=== PATIENT | female | born 1950 | race Caucasian/White ===

== ENCOUNTER 2023-12-07 15:27 | Emergency (ER) | payer MEDICARE, MEDICAID, SELFPAY ==
[2023-12-07] VITALS (22 sets, daily range): BP systolic 103–133; BP diastolic 51–77; PULSE 60–74; RESP 11–34; TEMP 36.8; O2SAT 92–99; BMI 28.2
--- NOTE | 2023-12-07 15:47 | DI.RAD.S_ITS ---
PROCEDURE: XR CHEST 1V INDICATIONS: chest pain TECHNIQUE: One view of the chest was acquired. COMPARISON: None. FINDINGS: Surgical changes and devices: Cardiac device is seen projecting near left hilum. Lungs and pleura: Lungs are clear. No pleural effusions or pneumothorax. Mediastinum: Mediastinal contours appear normal. Heart size is normal. Bones and chest wall: No suspicious bony lesions. Overlying soft tissues appear unremarkable. IMPRESSION: No acute cardiopulmonary pathology. Dictated by: Shane Umanzor M.D. on 12/07/2023 at 16:25 Approved by: Shane Umanzor M.D. on 12/07/2023 at 16:26
[2023-12-07 16:19] LABS: Add Manual Diff / Slide Review NO; Basophils Absolute Auto 100 /uL (0-100); Basophils Percent Auto 0.8 % (0-2); Eosinophils Absolute Auto 300 /uL (0-450); Eosinophils Percent Auto 2.7 % (2-4); Hematocrit 32.8 % (36-46); Hemoglobin 10.9 g/dL (12.0-16.0); Lymphocytes Absolute Auto 2200 /uL (1100-4500); Lymphocytes Percent Auto 22.8 % (25-40); Mean Corpuscular HGB Conc 33.2 % (30-36); Mean Corpuscular Hemoglobin 31.1 PG (26-34); Mean Corpuscular Volume 93.8 fL (80-100); Monocytes Absolute Auto 1000 /uL (0-900); Monocytes Percent Auto 10.3 % (3-14); Neutrophils Absolute Auto 6100 /uL (1500-7000); Neutrophils Percent Auto 63.4 % (50-75); Platelet Count 459 X10^3/uL (150-400); Red Cell Distribution Width 15.2 % (11.6-14.8); White Blood Cell Count 9.6 X10^3/uL (4.5-11.0)
[2023-12-07] MEDS: SODIUM CHLORIDE 0.9% 1,000 ML 150 ML IV (16:19)
[2023-12-07] MEDS: SODIUM CHLORIDE 0.9% 500 ML 1000 ML IV (16:19)
[2023-12-07 16:26] LABS: Lactate (Lactic Acid) 1.5 mmol/L (0.7-2.1)
[2023-12-07 16:28] LABS: Alanine Aminotransferase 10 IU/L (<35); Albumin 4.3 g/dL (3.5-5.0); Albumin Globulin Ratio 1.3 (1.0-2.8); Alkaline Phosphatase 63 U/L (38-126); Aspartate Aminotransferase 20 IU/L (14-36); BUN Creatinine Ratio 20.7 (6-22); Bilirubin Total 0.7 mg/dL (0.2-1.3); Blood Urea Nitrogen 30 mg/dL (7-17); Calcium 9.6 mg/dL (8.4-10.2); Carbon Dioxide 21 mmol/L (22-32); Chloride 106 mmol/L (98-107); Creatine Kinase 42 U/L (30-135); Estimated Glomerular Filt Rate 38 mL/min (>60); Globulin 3.3 g/dL (1.7-4.1); Glucose 92 mg/dL (80-110); HEMOLYSIS < 15 (0-50); Lipase 104 U/L (23-300); Potassium 5.3 mmol/L (3.4-5.1); Sodium 136 mmol/L (137-145); Total Protein 7.6 g/dL (6.3-8.2)
--- NOTE | 2023-12-07 16:34 | ED_ITS ---
HPI - SOB/Dyspnea <DO Demarco Hobbs Last Filed: 12/13/23 10:23> General Chief Complaint: Shortness of Breath/Dyspnea Stated Complaint: poss pnemonia/chest pain/SOB Time Seen by Provider: 12/07/23 16:34 Source: patient Mode of arrival: Ambulatory Limitations: no limitations History of Present Illness HPI Narrative: This is a 73-year-old female who had a robotic mitral valve replacement on 11/20/2023 at [facility]. Patient states that she has had some increasing shortness of breath and describes pleuritic chest pain and pain when she moves side to side. Patient states she has been pushing herself a little bit physically she was told not to lift her right arm or reach she has not been on that side but has some with her left and has been trying to push herself. She states still short of breath but not really worse than her surgery no orthopnea. They did notice she had sort of some swelling in her chest some around her sites that got better. She states no fevers. She has had a productive cough which has been yellow, no hemoptysis. No nausea or vomiting. She has had bowel movements but not quite normal. She does note some decreased appetite. She has been taking mostly gabapentin and Tylenol for pain, sometimes hydrocodone PRN. She is on aspirin 81 mg daily she is on lisinopril, levothyroxine and another medication or her tremors as well as heart. Patient states she has a prior shoulder surgery and appendectomy. Allergic to sulfa. No tobacco, for alcohol use, no recreational drugs. Patient surgeon is Dr. Aguilar at [place]. She lives in [place] but came over here to stay with her former [id number] who has been helping her as she recovers. She is scheduled for follow-up 4 weeks from her initial surgery. Related Data Allergies Allergy/AdvReac Type Severity Reaction Status Date / Time Sulfa (Sulfonamide Allergy Intermediate Verified 12/07/23 15:45 Antibiotics) Review of Systems <DO Demarco Hobbs Last Filed: 12/13/23 10:23> Review of Systems ROS Unobtainable: All systems reviewed & are unremarkable except as noted in HPI and below Patient History <DO Demarco Hobbs Last Filed: 05/09/24 10:23> Social History Smoking Status: Never smoker Smoking Status: Never smoker Substance Use Type: does not use Exam <Kaila Blood DO - Last Filed: 12/13/23 10:23> Narrative Exam Narrative: GENERAL: Alert and oriented x three, patient mild distress HEENT: Head normocephalic, atraumatic, EOMI, pupils reactive, face symmetric, moist mucous membranes NECK: Supple, full range of motion CARDIOVASCULAR: Regular rate and rhythm without murmurs, rubs or gallops. No JVD. Patient incisions are clean dry and intact she has 2 incisions on the left chest and upper abdomen as well as multiple incisions on the right. No erythema, no skin changes. Patient has nontender. RESPIRATORY: Breath sounds equal bilaterally, no wheezes rales or rhonchi. ABDOMEN: Soft, nontender. Normoactive bowel sounds all 4 quadrants. No guarding or rebound, rigidity, no mass : No CVA tenderness EXTREMITIES: Normal range of motion, no clubbing or edema. Neurovascularly intact NEUROLOGICAL: Cranial nerves II through XII grossly intact. Moving all extremities SKIN: Warm, dry, no petechiae, no rashes or lesions. Initial Vital Signs Initial Vital Signs: Vital Signs Temperature 98.3 F 12/07/23 15:34 Pulse Rate 66 12/07/23 15:34 Respiratory Rate 16 12/07/23 15:34 Blood Pressure 103/51 L 12/07/23 15:34 Pulse Oximetry 98 12/07/23 15:34 Oxygen Delivery Method Room Air 12/07/23 15:34 <Kaila Joe MD - Last Filed: 12/07/23 23:43> Initial Vital Signs Initial Vital Signs: Vital Signs Temperature 98.3 F 12/07/23 15:34 Pulse Rate 66 12/07/23 15:34 Respiratory Rate 16 12/07/23 15:34 Blood Pressure 103/51 L 12/07/23 15:34 Pulse Oximetry 98 12/07/23 15:34 Oxygen Delivery Method Room Air 12/07/23 15:34 Course <Kaila Blood DO - Last Filed: 12/13/23 10:23> Orders Ordered: Discontinued Medications Aspirin (Aspirin 81 Mg Chew Tab) 324 mg PO NOW ONE Stop: 12/07/23 15:47 Last Admin: 12/07/23 15:49 Dose: Not Given Documented By: ELIAS Sodium Chloride (Normal Saline 0.9%) 1,000 mls @ 150 mls/hr IV CONT MAYNOR Last Infusion: 12/07/23 20:50 Dose: Infused Documented By: Infusion: 12/07/23 16:20 Dose: 0 mls/hr Documented By: Admin: 12/07/23 16:19 Dose: 150 mls/hr Documented By: HIEU Sodium Chloride (Normal Saline 0.9%) 500 mls @ 1,000 mls/hr IV BOLUS ONE Stop: 12/07/23 16:23 Last Infusion: 12/07/23 19:22 Dose: Infused Documented By: Admin: 12/07/23 16:19 Dose: 1,000 mls/hr Documented By: SHANTEL Vital Signs Vital signs: Vital Signs - 8 hr 12/07/23 15:38 12/07/23 15:38 12/07/23 16:00 Pulse Rate 63 61 Respiratory Rate 20 Blood Pressure 103/51 L Pulse Oximetry 97 96 12/07/23 16:09 12/07/23 16:09 12/07/23 16:30 Pulse Rate 61 Respiratory Rate 18 Blood Pressure 114/57 L 104/57 L Pulse Oximetry 94 12/07/23 16:30 12/07/23 17:00 12/07/23 17:10 Pulse Rate 60 68 Respiratory Rate 21 19 Blood Pressure 133/61 Pulse Oximetry 96 98 12/07/23 17:10 12/07/23 17:15 12/07/23 17:15 Pulse Rate 62 62 Respiratory Rate 14 14 Blood Pressure 109/65 Pulse Oximetry 96 97 12/07/23 17:30 12/07/23 17:43 12/07/23 17:43 Pulse Rate 63 66 Respiratory Rate 26 H 19 Blood Pressure 121/63 Pulse Oximetry 96 92 12/07/23 17:45 12/07/23 17:45 12/07/23 18:00 Pulse Rate 66 66 Respiratory Rate 16 19 Blood Pressure 116/61 Pulse Oximetry 98 99 12/07/23 18:04 12/07/23 18:04 12/07/23 18:57 Pulse Rate 64 72 Respiratory Rate 18 21 Blood Pressure 119/60 Pulse Oximetry 97 95 12/07/23 18:57 12/07/23 19:00 12/07/23 19:00 Pulse Rate 70 Respiratory Rate 34 H Blood Pressure 120/74 118/65 Pulse Oximetry 97 12/07/23 19:15 12/07/23 19:15 12/07/23 19:30 Pulse Rate 64 64 Respiratory Rate 22 19 Blood Pressure 132/74 Pulse Oximetry 99 99 12/07/23 19:31 12/07/23 19:31 12/07/23 19:45 Pulse Rate 65 Respiratory Rate 25 H Blood Pressure 126/67 133/77 Pulse Oximetry 98 12/07/23 19:45 12/07/23 20:00 12/07/23 20:00 Pulse Rate 74 63 Respiratory Rate 11 L 23 Blood Pressure 126/76 Pulse Oximetry 99 99 12/07/23 20:15 12/07/23 20:15 Pulse Rate 62 Respiratory Rate 21 Blood Pressure 132/69 Pulse Oximetry 98 <Kaila Joe MD - Last Filed: 12/07/23 23:43> Orders Ordered: Discontinued Medications Aspirin (Aspirin 81 Mg Chew Tab) 324 mg PO NOW ONE Stop: 12/07/23 15:47 Last Admin: 12/07/23 15:49 Dose: Not Given Documented By: ELIAS Sodium Chloride (Normal Saline 0.9%) 1,000 mls @ 150 mls/hr IV CONT MAYNOR Last Infusion: 12/07/23 20:50 Dose: Infused Documented By: Infusion: 12/07/23 16:20 Dose: 0 mls/hr Documented By: Admin: 12/07/23 16:19 Dose: 150 mls/hr Documented By: HIEU Sodium Chloride (Normal Saline 0.9%) 500 mls @ 1,000 mls/hr IV BOLUS ONE Stop: 12/07/23 16:23 Last Infusion: 12/07/23 19:22 Dose: Infused Documented By: Admin: 12/07/23 16:19 Dose: 1,000 mls/hr Documented By: SHANTEL Vital Signs Vital signs: Vital Signs - 8 hr 12/07/23 15:38 12/07/23 15:38 12/07/23 16:00 Pulse Rate 63 61 Respiratory Rate 20 Blood Pressure 103/51 L Pulse Oximetry 97 96 12/07/23 16:09 12/07/23 16:09 12/07/23 16:30 Pulse Rate 61 Respiratory Rate 18 Blood Pressure 114/57 L 104/57 L Pulse Oximetry 94 12/07/23 16:30 12/07/23 17:00 12/07/23 17:10 Pulse Rate 60 68 Respiratory Rate 21 19 Blood Pressure 133/61 Pulse Oximetry 96 98 12/07/23 17:10 12/07/23 17:15 12/07/23 17:15 Pulse Rate 62 62 Respiratory Rate 14 14 Blood Pressure 109/65 Pulse Oximetry 96 97 12/07/23 17:30 12/07/23 17:43 12/07/23 17:43 Pulse Rate 63 66 Respiratory Rate 26 H 19 Blood Pressure 121/63 Pulse Oximetry 96 92 12/07/23 17:45 12/07/23 17:45 12/07/23 18:00 Pulse Rate 66 66 Respiratory Rate 16 19 Blood Pressure 116/61 Pulse Oximetry 98 99 12/07/23 18:04 12/07/23 18:04 12/07/23 18:57 Pulse Rate 64 72 Respiratory Rate 18 21 Blood Pressure 119/60 Pulse Oximetry 97 95 12/07/23 18:57 12/07/23 19:00 12/07/23 19:00 Pulse Rate 70 Respiratory Rate 34 H Blood Pressure 120/74 118/65 Pulse Oximetry 97 12/07/23 19:15 12/07/23 19:15 12/07/23 19:30 Pulse Rate 64 64 Respiratory Rate 22 19 Blood Pressure 132/74 Pulse Oximetry 99 99 12/07/23 19:31 12/07/23 19:31 12/07/23 19:45 Pulse Rate 65 Respiratory Rate 25 H Blood Pressure 126/67 133/77 Pulse Oximetry 98 12/07/23 19:45 12/07/23 20:00 12/07/23 20:00 Pulse Rate 74 63 Respiratory Rate 11 L 23 Blood Pressure 126/76 Pulse Oximetry 99 99 12/07/23 20:15 12/07/23 20:15 Pulse Rate 62 Respiratory Rate 21 Blood Pressure 132/69 Pulse Oximetry 98 MDM - SOB/Dyspnea <Kaila Blood DO - Last Filed: 12/13/23 10:23> Lab Data 12/07/23 16:01 12/07/23 16:01 Labs: Lab Results 12/07/23 12/07/23 12/07/23 Range/Units 16:01 16:38 16:55 WBC 9.6 (4.5-11.0) X10^3/uL RBC 3.50 L (4.0-5.2) X10^6/uL Hgb 10.9 L (12.0-16.0) g/dL Hct 32.8 L (36-46) % MCV 93.8 (80-100) fL MCH 31.1 (26-34) PG MCHC 33.2 (30-36) % RDW 15.2 H (11.6-14.8) % Plt Count 459 H (150-400) X10^3/uL Neut % (Auto) 63.4 (50-75) % Lymph % (Auto) 22.8 L (25-40) % [place] % (Auto) 10.3 (3-14) % Eos % (Auto) 2.7 (2-4) % Baso % (Auto) 0.8 (0-2) % Neut # (Auto) 6100 (0431-9176) /uL Lymph # (Auto) 2200 (5845-7818) /uL [place] # (Auto) 1000 H (0-900) /uL Eos # (Auto) 300 (0-450) /uL Baso # (Auto) 100 (0-100) /uL Sodium 136 L (137-145) mmol/L Potassium 5.3 H (3.4-5.1) mmol/L Chloride 106 (98-107) mmol/L Carbon Dioxide 21 L (22-32) mmol/L BUN 30 H (7-17) mg/dL Creatinine 1.45 H (0.52-1.04) mg/dL Estimated GFR 38 L (>60) mL/min BUN/Creatinine Ratio 20.7 (6-22) Glucose 92 (80-110) mg/dL Lactate 1.5 (0.7-2.1) mmol/L Calcium 9.6 (8.4-10.2) mg/dL Total Bilirubin 0.7 (0.2-1.3) mg/dL AST 20 (14-36) IU/L ALT 10 (<35) IU/L Alkaline Phosphatase 63 (38-126) U/L Total Creatine Kinase 42 (30-135) U/L Troponin I 0.103 H (0.01-0.034) ng/mL NT-Pro-B Natriuret Pep 4080 H (<125) pg/mL Total Protein 7.6 (6.3-8.2) g/dL Albumin 4.3 (3.5-5.0) g/dL Globulin 3.3 (1.7-4.1) g/dL Albumin/Globulin Ratio 1.3 (1.0-2.8) Lipase 104 (23-300) U/L Procalcitonin 0.05 (<0.5) ng/mL Urine RBC 0-1/hpf (0-5/HPF) Urine WBC 0-1/hpf (0-5/HPF) Ur Squamous Epith Cells 1-5 /hpf (0-5/HPF) Urine Bacteria Occasional (0-1) (None) Hyaline Casts 0-1/lpf (None) Urine Mucus 1+ H (Negative) Ur Culture Indicated? Specimen cultured Vol Urine Centrifuged 10ml (spun) Chlamy pneumoniae PCR Not detected (Not Detect) Adenovirus (PCR) Not detected (Not Detect) B.parapertussis DNA PCR Not detected (Not Detecte) Coronavirus OC43 (PCR) Not detected (Not Detect) Coronavirus HKU1 (PCR) Not detected (Not Detect) Coronavirus 229E (PCR) Not detected (Not Detect) SARS-CoV-2 (PCR) Not detected (Not Detecte) Coronavirus NL63 (PCR) Not detected (Not Detect) Human Metapneumovir PCR Not detected (Not Detect) Influenza Type A (PCR) Not detected (Not Detect) Influenza Type B (PCR) Not detected (Not Detect) M. pneumoniae (PCR) Not detected (Not Detect) Parainfluenza 1 (PCR) Not detected (Not Detect) Parainfluenza 2 (PCR) Not detected (Not Detect) Parainfluenza 3 (PCR) Not detected (Not Detect) Parainfluenza 4 (PCR) Not detected (Not Detect) RSV (PCR) Not detected (Not Detect) Entero/Rhino (PCR) Not detected (Not Detect) 12/07/23 Range/Units 18:00 WBC (4.5-11.0) X10^3/uL RBC (4.0-5.2) X10^6/uL Hgb (12.0-16.0) g/dL Hct (36-46) % MCV (80-100) fL MCH (26-34) PG MCHC (30-36) % RDW (11.6-14.8) % Plt Count (150-400) X10^3/uL Neut % (Auto) (50-75) % Lymph % (Auto) (25-40) % [place] % (Auto) (3-14) % Eos % (Auto) (2-4) % Baso % (Auto) (0-2) % Neut # (Auto) (0906-0962) /uL Lymph # (Auto) (9093-9180) /uL [place] # (Auto) (0-900) /uL Eos # (Auto) (0-450) /uL Baso # (Auto) (0-100) /uL Sodium (137-145) mmol/L Potassium (3.4-5.1) mmol/L Chloride (98-107) mmol/L Carbon Dioxide (22-32) mmol/L BUN (7-17) mg/dL Creatinine (0.52-1.04) mg/dL Estimated GFR (>60) mL/min BUN/Creatinine Ratio (6-22) Glucose (80-110) mg/dL Lactate (0.7-2.1) mmol/L Calcium (8.4-10.2) mg/dL Total Bilirubin (0.2-1.3) mg/dL AST (14-36) IU/L ALT (<35) IU/L Alkaline Phosphatase (38-126) U/L Total Creatine Kinase (30-135) U/L Troponin I 0.029 (0.01-0.034) ng/mL NT-Pro-B Natriuret Pep (<125) pg/mL Total Protein (6.3-8.2) g/dL Albumin (3.5-5.0) g/dL Globulin (1.7-4.1) g/dL Albumin/Globulin Ratio (1.0-2.8) Lipase (23-300) U/L Procalcitonin (<0.5) ng/mL Urine RBC (0-5/HPF) Urine WBC (0-5/HPF) Ur Squamous Epith Cells (0-5/HPF) Urine Bacteria (None) Hyaline Casts (None) Urine Mucus (Negative) Ur Culture Indicated? Vol Urine Centrifuged Chlamy pneumoniae PCR (Not Detect) Adenovirus (PCR) (Not Detect) B.parapertussis DNA PCR (Not Detecte) Coronavirus OC43 (PCR) (Not Detect) Coronavirus HKU1 (PCR) (Not Detect) Coronavirus 229E (PCR) (Not Detect) SARS-CoV-2 (PCR) (Not Detecte) Coronavirus NL63 (PCR) (Not Detect) Human Metapneumovir PCR (Not Detect) Influenza Type A (PCR) (Not Detect) Influenza Type B (PCR) (Not Detect) M. pneumoniae (PCR) (Not Detect) Parainfluenza 1 (PCR) (Not Detect) Parainfluenza 2 (PCR) (Not Detect) Parainfluenza 3 (PCR) (Not Detect) Parainfluenza 4 (PCR) (Not Detect) RSV (PCR) (Not Detect) Entero/Rhino (PCR) (Not Detect) Urine Dip Bedside Urine Glucose Negative Bedside Urine Bilirubin - Negative Bedside Urine Ketone - Negative Urine Specific [place] 1.015 Bedside Urine Occult Blood - Negative Bedside Urine pH 6.0 Bedside Urine Protein - Negative Bedside Urine Urobilinogen - Negative Bedside Urine Nitrite + Positive Bedside Urine Leukocytes - Negative Esterase Imaging Data Chest x-ray: Radiologist's Impression: Close Chest X-Ray (Signed) Shane Umanzor - 12/07/23 [place] [address] XRay Report Signed Patient: Monie Ann MR#: [id number] : 1950 Acct:[id number] Age/Sex: 73 / F Date of Service: 12/07/23 Loc: ED Accession Number: [id number] Procedure: XR chest 1V Ordering Provider: Kaila Blood D.O. PROCEDURE: XR CHEST 1V INDICATIONS: chest pain TECHNIQUE: One view of the chest was acquired. COMPARISON: None. FINDINGS: Surgical changes and devices: Cardiac device is seen projecting near left hilum. Lungs and pleura: Lungs are clear. No pleural effusions or pneumothorax. Mediastinum: Mediastinal contours appear normal. Heart size is normal. Bones and chest wall: No suspicious bony lesions. Overlying soft tissues appear unremarkable. IMPRESSION: No acute cardiopulmonary pathology. Dictated by: Shane Umanzor M.D. on 12/07/2023 at 16:25 Approved by: Shane Umanzor M.D. on 12/07/2023 at 16:26 CT chest: Radiologist's Impression: Close Chest CTA (Signed) Micheal Morales - 12/07/23 Chest X-Ray (Signed) Shane Umanzor - 12/07/23 [facility] [address] [address] [address] Scan Report Signed Patient: Monie Ann MR#: [id number] : 1950 Acct:[id number] Age/Sex: 73 / F Date of Service: 12/07/23 Loc: ED Accession Number: [id number] Procedure: CT angio chest PE protocol Ordering Provider: Kaila Blood D.O. PROCEDURE: CT ANGIO CHEST PE PROTOCOL INDICATIONS: chest pain, sob s/p robotic mitral valve 11/19 in [place] TECHNIQUE: After the administration of intravenous contrast, 2 mm thick sections acquired from the pulmonary apices to the posterior costophrenic angles. 3-dimensional maximum intensity projection (MIP) coronal and sagittal reformats were then acquired through the thorax. For radiation dose reduction, the following was used: automated exposure control, adjustment of mA and/or kV according to patient size. COMPARISON: [facility], CR, XR CHEST 1V, 12/07/2023, 15:58. FINDINGS: Image quality: Diagnostic. Pulmonary arteries: Pulmonary arteries are normal in size, and demonstrate no intraluminal filling defects to suggest central pulmonary embolism. Lower Neck: No enlarged lymph nodes. Thyroid: No thyroid nodules which require sonographic follow up, per consensus guidelines. Axillae: No enlarged lymph nodes. Chest Wall: Unremarkable. Bones: Moderate T12 compression fractures of uncertain age. Lungs and Pleura: No pneumothorax or pleural effusions. Small bilateral pleural effusions. No pneumothorax. Ground-glass attenuation in both lungs is likely related to non breath hold technique although mild edema is not excluded. No consolidation or suspicious nodules. Heart: Heart size is mildly enlarged. Small pericardial effusion. A prosthetic mitral valve is present. Left atrial appendage clip is also seen. Thoracic Vessels: No aortic aneurysm. Mediastinum and Vicky: Increased number of mediastinal lymph nodes are seen measuring up to 1.0 cm in short axis diameter in the precarinal region.. Esophagus: No wall thickening. No hiatal hernia. Upper Abdomen: Visualized upper abdomen solid organs and bowel loops appear normal. IMPRESSION: 1. No acute pulmonary embolus. 2. Mild cardiomegaly. Prosthetic mitral valve and left atrial appendage clip are present. 3. Small non-specific pericardial effusion. 4. Small bilateral pleural effusions. 5. Mild ground-glass attenuation in both lungs is likely related to atelectasis although mild edema is not excluded. 6. Moderate T12 compression fracture is of uncertain age. Recommend correlation with any prior exams if available. Approved by: Micheal Morales M.D. on 12/07/2023 at 18:26 ECG Data Attestation: I personally reviewed and interpreted this ECG as follows: Prior ECG tracings: not available for review Interpretation: Sinus rhythm rate of 62 AK 150 QRS 82 QTC 432. Elevation patient does have inverted T-waves V2 through V5, as well as 1 in aVL. Patient does not have any priors for comparison. MDM Narrative Medical decision making narrative: Patient's white count is 9.6 hemoglobin is 10.9 platelets 459, lymphocytes are low no predominance of neutrophils. Sodium is 136 potassium is 5 3 chloride 106 with a CO2 of 21 BUN of 30 creatinine of 1.45, glucose 92 lactate 1.5, procalcitonin is less than appear 0.05, trope is indeterminate 0.103 and BNP of 4000. Patient's troponin could be still elevated postsurgically, has repeat troponin pending. Respiratory panel is negative. Chest x-ray shows no acute change. CT chest shows no PE, mild cardiomegaly mitral valve and left atrial appendage clip present nonspecific small pericardial effusion, mild bilateral pleural effusions mild ground-glass attenuation moderate T12 compression fracture uncertain age. Signed out to Dr. Joe while awaiting repeat troponin. Dr. Joe - 0 2Hr troponin decreased. Patient reassessed, denying complaints or symptoms. Plan to reach out to patient's CT surgery team in [place] No word from [place] as of 2029. Patient requesting to leave, stating she feels better and with normal workup would like to go to her sister's house. I will reach out to patient if CT surgery has any additional recommendation. 2114 - Discussed case with Dr. Ruffin of CT surgery in [place]. No further recommendations. Patient can follow up in the office <Kaila Joe MD - Last Filed: 12/07/23 23:43> Lab Data Labs: Lab Results 12/07/23 12/07/23 12/07/23 Range/Units 16:01 16:38 16:55 WBC 9.6 (4.5-11.0) X10^3/uL RBC 3.50 L (4.0-5.2) X10^6/uL Hgb 10.9 L (12.0-16.0) g/dL Hct 32.8 L (36-46) % MCV 93.8 (80-100) fL MCH 31.1 (26-34) PG MCHC 33.2 (30-36) % RDW 15.2 H (11.6-14.8) % Plt Count 459 H (150-400) X10^3/uL Neut % (Auto) 63.4 (50-75) % Lymph % (Auto) 22.8 L (25-40) % [place] % (Auto) 10.3 (3-14) % Eos % (Auto) 2.7 (2-4) % Baso % (Auto) 0.8 (0-2) % Neut # (Auto) 6100 (0228-3109) /uL Lymph # (Auto) 2200 (0025-2522) /uL [place] # (Auto) 1000 H (0-900) /uL Eos # (Auto) 300 (0-450) /uL Baso # (Auto) 100 (0-100) /uL Sodium 136 L (137-145) mmol/L Potassium 5.3 H (3.4-5.1) mmol/L Chloride 106 (98-107) mmol/L Carbon Dioxide 21 L (22-32) mmol/L BUN 30 H (7-17) mg/dL Creatinine 1.45 H (0.52-1.04) mg/dL Estimated GFR 38 L (>60) mL/min BUN/Creatinine Ratio 20.7 (6-22) Glucose 92 (80-110) mg/dL Lactate 1.5 (0.7-2.1) mmol/L Calcium 9.6 (8.4-10.2) mg/dL Total Bilirubin 0.7 (0.2-1.3) mg/dL AST 20 (14-36) IU/L ALT 10 (<35) IU/L Alkaline Phosphatase 63 (38-126) U/L Total Creatine Kinase 42 (30-135) U/L Troponin I 0.103 H (0.01-0.034) ng/mL NT-Pro-B Natriuret Pep 4080 H (<125) pg/mL Total Protein 7.6 (6.3-8.2) g/dL Albumin 4.3 (3.5-5.0) g/dL Globulin 3.3 (1.7-4.1) g/dL Albumin/Globulin Ratio 1.3 (1.0-2.8) Lipase 104 (23-300) U/L Procalcitonin 0.05 (<0.5) ng/mL Urine RBC 0-1/hpf (0-5/HPF) Urine WBC 0-1/hpf (0-5/HPF) Ur Squamous Epith Cells 1-5 /hpf (0-5/HPF) Urine Bacteria Occasional (0-1) (None) Hyaline Casts 0-1/lpf (None) Urine Mucus 1+ H (Negative) Ur Culture Indicated? Specimen cultured Vol Urine Centrifuged 10ml (spun) Chlamy pneumoniae PCR Not detected (Not Detect) Adenovirus (PCR) Not detected (Not Detect) B.parapertussis DNA PCR Not detected (Not Detecte) Coronavirus OC43 (PCR) Not detected (Not Detect) Coronavirus HKU1 (PCR) Not detected (Not Detect) Coronavirus 229E (PCR) Not detected (Not Detect) SARS-CoV-2 (PCR) Not detected (Not Detecte) Coronavirus NL63 (PCR) Not detected (Not Detect) Human Metapneumovir PCR Not detected (Not Detect) Influenza Type A (PCR) Not detected (Not Detect) Influenza Type B (PCR) Not detected (Not Detect) M. pneumoniae (PCR) Not detected (Not Detect) Parainfluenza 1 (PCR) Not detected (Not Detect) Parainfluenza 2 (PCR) Not detected (Not Detect) Parainfluenza 3 (PCR) Not detected (Not Detect) Parainfluenza 4 (PCR) Not detected (Not Detect) RSV (PCR) Not detected (Not Detect) Entero/Rhino (PCR) Not detected (Not Detect) 12/07/23 Range/Units 18:00 WBC (4.5-11.0) X10^3/uL RBC (4.0-5.2) X10^6/uL Hgb (12.0-16.0) g/dL Hct (36-46) % MCV (80-100) fL MCH (26-34) PG MCHC (30-36) % RDW (11.6-14.8) % Plt Count (150-400) X10^3/uL Neut % (Auto) (50-75) % Lymph % (Auto) (25-40) % [place] % (Auto) (3-14) % Eos % (Auto) (2-4) % Baso % (Auto) (0-2) % Neut # (Auto) (8513-3085) /uL Lymph # (Auto) (8525-6241) /uL [place] # (Auto) (0-900) /uL Eos # (Auto) (0-450) /uL Baso # (Auto) (0-100) /uL Sodium (137-145) mmol/L Potassium (3.4-5.1) mmol/L Chloride (98-107) mmol/L Carbon Dioxide (22-32) mmol/L BUN (7-17) mg/dL Creatinine (0.52-1.04) mg/dL Estimated GFR (>60) mL/min BUN/Creatinine Ratio (6-22) Glucose (80-110) mg/dL Lactate (0.7-2.1) mmol/L Calcium (8.4-10.2) mg/dL Total Bilirubin (0.2-1.3) mg/dL AST (14-36) IU/L ALT (<35) IU/L Alkaline Phosphatase (38-126) U/L Total Creatine Kinase (30-135) U/L Troponin I 0.029 (0.01-0.034) ng/mL NT-Pro-B Natriuret Pep (<125) pg/mL Total Protein (6.3-8.2) g/dL Albumin (3.5-5.0) g/dL Globulin (1.7-4.1) g/dL Albumin/Globulin Ratio (1.0-2.8) Lipase (23-300) U/L Procalcitonin (<0.5) ng/mL Urine RBC (0-5/HPF) Urine WBC (0-5/HPF) Ur Squamous Epith Cells (0-5/HPF) Urine Bacteria (None) Hyaline Casts (None) Urine Mucus (Negative) Ur Culture Indicated? Vol Urine Centrifuged Chlamy pneumoniae PCR (Not Detect) Adenovirus (PCR) (Not Detect) B.parapertussis DNA PCR (Not Detecte) Coronavirus OC43 (PCR) (Not Detect) Coronavirus HKU1 (PCR) (Not Detect) Coronavirus 229E (PCR) (Not Detect) SARS-CoV-2 (PCR) (Not Detecte) Coronavirus NL63 (PCR) (Not Detect) Human Metapneumovir PCR (Not Detect) Influenza Type A (PCR) (Not Detect) Influenza Type B (PCR) (Not Detect) M. pneumoniae (PCR) (Not Detect) Parainfluenza 1 (PCR) (Not Detect) Parainfluenza 2 (PCR) (Not Detect) Parainfluenza 3 (PCR) (Not Detect) Parainfluenza 4 (PCR) (Not Detect) RSV (PCR) (Not Detect) Entero/Rhino (PCR) (Not Detect) Urine Dip Bedside Urine Glucose Negative Bedside Urine Bilirubin - Negative Bedside Urine Ketone - Negative Urine Specific [place] 1.015 Bedside Urine Occult Blood - Negative Bedside Urine pH 6.0 Bedside Urine Protein - Negative Bedside Urine Urobilinogen - Negative Bedside Urine Nitrite + Positive Bedside Urine Leukocytes - Negative Esterase MDM Narrative Medical decision making narrative: Patient's white count is 9.6 hemoglobin is 10.9 platelets 459, lymphocytes are low no predominance of neutrophils. Sodium is 136 potassium is 5 3 chloride 106 with a CO2 of 21 BUN of 30 creatinine of 1.45, glucose 92 lactate 1.5, procalcitonin is less than appear 0.05, trope is indeterminate 0.103 and BNP of 4000. Patient's troponin could be still elevated postsurgically, has repeat troponin pending. Respiratory panel is negative. Chest x-ray shows no acute change. CT chest shows no PE, mild cardiomegaly mitral valve and left atrial appendage clip present nonspecific small pericardial effusion, mild bilateral pleural effusions mild ground-glass attenuation moderate T12 compression fracture uncertain age. Dr. Joe - 1930 2Hr troponin decreased. Patient reassessed, denying complaints or symptoms. Plan to reach out to patient's CT surgery team in [place] No word from [place] as of 2029. Patient requesting to leave, stating she feels better and with normal workup would like to go to her sister's house. I will reach out to patient if CT surgery has any additional recommendation. 2114 - Discussed case with Dr. Ruffin of CT surgery in [place]. No further recommendations. Patient can follow up in the office Discharge Plan Departure Patient Disposition: Home Clinical Impression: Shortness of Breath Instructions: DI for Shortness of Breath Activity Restrictions/Additional Instructions: We have not heard back yet from Cardiothoracic surgery, however right now your workup is reassuring. You do not have any blood clots on your CT and no evidence of blockages in your heart. Please follow up with your Cardiothoracic surgeon, or return to the emergency department for new or worsening concerns. Referrals: Miscellaneous,Doctor, [Primary Care Provider] - Stand Alone Forms: Patient Portal/API
[2023-12-07 16:37] LABS: NT-proBNP (BNP-Adult 18+) 4080 pg/mL (<125)
[2023-12-07 16:39] LABS: Troponin I 0.103 ng/mL (0.01-0.034)
[2023-12-07 16:44] LABS: Procalcitonin 0.05 ng/mL (<0.5)
--- NOTE | 2023-12-07 16:56 | DI.CT.S_ITS ---
PROCEDURE: CT ANGIO CHEST PE PROTOCOL INDICATIONS: chest pain, sob s/p robotic mitral valve 11/19 in [place] TECHNIQUE: After the administration of intravenous contrast, 2 mm thick sections acquired from the pulmonary apices to the posterior costophrenic angles. 3-dimensional maximum intensity projection (MIP) coronal and sagittal reformats were then acquired through the thorax. For radiation dose reduction, the following was used: automated exposure control, adjustment of mA and/or kV according to patient size. COMPARISON: [facility], CR, XR CHEST 1V, 12/07/2023, 15:58. FINDINGS: Image quality: Diagnostic. Pulmonary arteries: Pulmonary arteries are normal in size, and demonstrate no intraluminal filling defects to suggest central pulmonary embolism. Lower Neck: No enlarged lymph nodes. Thyroid: No thyroid nodules which require sonographic follow up, per consensus guidelines. Axillae: No enlarged lymph nodes. Chest Wall: Unremarkable. Bones: Moderate T12 compression fractures of uncertain age. Lungs and Pleura: No pneumothorax or pleural effusions. Small bilateral pleural effusions. No pneumothorax. Ground-glass attenuation in both lungs is likely related to non breath hold technique although mild edema is not excluded. No consolidation or suspicious nodules. Heart: Heart size is mildly enlarged. Small pericardial effusion. A prosthetic mitral valve is present. Left atrial appendage clip is also seen. Thoracic Vessels: No aortic aneurysm. Mediastinum and Vicky: Increased number of mediastinal lymph nodes are seen measuring up to 1.0 cm in short axis diameter in the precarinal region.. Esophagus: No wall thickening. No hiatal hernia. Upper Abdomen: Visualized upper abdomen solid organs and bowel loops appear normal. IMPRESSION: 1. No acute pulmonary embolus. 2. Mild cardiomegaly. Prosthetic mitral valve and left atrial appendage clip are present. 3. Small non-specific pericardial effusion. 4. Small bilateral pleural effusions. 5. Mild ground-glass attenuation in both lungs is likely related to atelectasis although mild edema is not excluded. 6. Moderate T12 compression fracture is of uncertain age. Recommend correlation with any prior exams if available. Approved by: Micheal Morales M.D. on 12/07/2023 at 18:26
[2023-12-07 17:27] LABS: Bacteria Urine Occasional (0-1); Hyaline Casts Urine 0-1/LPF; Mucus Urine 1+ (Negative); RBC Urine 0-1/HPF (0-5/HPF); Squamous Epithelial Cell Urine 1-5 /HPF (0-5/HPF); Urine Volume 10mL (spun); WBC Urine 0-1/HPF (0-5/HPF)
[2023-12-07 17:28] LABS: Culture Indicated Urine Specimen Cultured
[2023-12-07 17:34] LABS: Adenovirus Not Detected (Not Detect); B. parapertussis Not Detected (Not Detecte); Bordetella pertussis Not Detected (Not Detect); Chlamydophila pneumoniae Not Detected (Not Detect); Coronavirus 229E Not Detected (Not Detect); Coronavirus HKU1 Not Detected (Not Detect); Coronavirus NL 63 Not Detected (Not Detect); Coronavirus OC43 Not Detected (Not Detect); Human Metapneumovirus Not Detected (Not Detect); Human Rhinovirus/Enterovirus Not Detected (Not Detect); Influenza A Not Detected (Not Detect); Influenza B Not Detected (Not Detect); Mycoplasma pneumoniae Not Detected (Not Detect); Parainfluenza Virus 1 Not Detected (Not Detect); Parainfluenza Virus 2 Not Detected (Not Detect); Parainfluenza Virus 3 Not Detected (Not Detect); Parainfluenza Virus 4 Not Detected (Not Detect); Respiratory Syncytial Virus Not Detected (Not Detect); SARS- CoV-2 Not Detected (Not Detecte)
--- NOTE | 2023-12-07 17:34 | PC.NURSE ---
pt asking if she can take her regular scheduled pain medications. gabapentin and aleve. spoke with provider, got okay for gabapentin but hold on the aleve
[2023-12-07 18:44] LABS: Troponin I 0.029 ng/mL (0.01-0.034)
== END 2023-12-07 20:53 | disposition home or self-care (01) ==
PROVIDERS: Emergency Provider Emergency Medicine
DX: R06.02 Shortness of breath (principal); R07.9 Chest pain, unspecified; Z95.5 Presence of coronary angioplasty implant and graft; Z20.822 Contact with and (suspected) exposure to COVID-19
CPT/HCPCS: 36415; 71045; 71275; 80053; 81003; 81015; 82550; 83605; 83690; 83880; 84145; 84484; 85025; 87040; 87086; 87633; 93005; 96360; 96361; 99284; Q9967